=== PATIENT | male | born 1950 | race Caucasian/White ===

== ENCOUNTER 2018-09-22 11:05 | Outpatient (CLI) | payer MEDICARE, BC ==
[~2018-09-22] VITALS: Ht 182.9 cm; Wt 88.6 kg
--- NOTE | ~2018-09-22 | HEMODYNAMI ---
PATIENT:BJ PATTON MEDICAL RECORD: [id number] : 48 LOCATION:[facility] ADMISSION DATE: 09/22/18 Generatedon:09/22/201814:13 Patient name: BJ PATTON Patient #: [id number] SSN: : 1950 Date of study: 09/22/2018 Page: Of Hemodynamic Procedure Report Patient Data Patient Demographics Procedure consent was obtained First Name: BJ Gender: Male Last Name: ABDI : 1950 Patient #: [id number] Age: 67 year(s) Race: Unknown Additional ID: [id number] Contact details Address: [address] [place] [address] State: [place] City: [place] Zip code: [address] Past Medical History Allergies: No known allergies Admission Admission Data Admission Date: 09/22/2018 Admission Time: 11:05 Procedure Procedure Types Cath Procedure Diagnostic Procedure Cardioversion External Procedure Description Procedure Date Procedure Date: 09/22/2018 Procedure Start Time: 14:04 Procedure End Time: 14:13 Procedure Staff Name Function Stanislav Hearn MD Performing Physician Brenda Crooks RT Monitor Christos Gutierres RN Nurse Trevon Butt MD Additional personnel Procedure Data Procedure Complications No complications Procedure Medications Medication Administration Route Dosage Oxygen etCO2 Nasal cannula 2 l/min Refer to Anesthesia Notes for Sedation Medications Hemodynamics Rest Heart Rate: 77 (bpm) Snapshots Pre Cath Intra NCS Post Cath Vital Signs Time Heart Resp SPO2 etCO2 NIBP (mmHg) Rhythm Pain Sedation Rate (ipm) (%) (mmHg) Status Level (bpm) 14:04:17 67 19 100 35.1 163/111(149) A-Flutter 0 (11) 10(A) , No pain 14:08:31 54 17 98 1.4 119/88(100) SB 0 (11) 9(A) , No pain 14:10:46 61 11 96 32.1 116/74(103) SB 0 (11) 9(A) , No pain Medications Time Medication Route Dose Verified Delivered Reason Notes Effective ness by by 14:03:27 Oxygen etCO2 2 Stanislav Sher used for Nasal l/min Dhiraj Gutierres rn licensed practical cannula 14:03:34 Refer to Stanislav Sher Anesthesia Dhiraj Gutierres RN Notes for Sedation Medications Procedure Log Time Note 13:41:46 Time tracking: Regular hours (M-F 7:00 - 5:00) 13:42:18 Plan of Care:Hemodynamics will remain stable., Cardiac rhythm will remain stable., Comfort level will be maintained., Respiratory function will remain adequate., Patient/ family verbilizes understanding of procedure., Procedure tolerated without complication., Recovers from procedure without complications.. 13:45:45 Christos Gutierres RN sent for patient. Start room use. 13:58:30 Patient received from Pre/Post Procedure Room to CCL 3 Alert and oriented. Tansferred to table in Supine position. 13:58:31 Warm blankets applied, and jenny hugger turned on for patient comfort. 13:58:32 Correct patient and procedure confirmed by team. 13:58:33 Signed procedure consent form obtained from patient. 13:58:34 ECG and BP/O2 sat monitors applied to patient. 13:58:35 Full Disclosure recording started 13:59:23 H&P Date Dictated: 09/11/2018 Within 30 days and on chart., H&P Addendum completed by physician on day of procedure. (MUST COMPLETE FOR ALL OUTPATIENTS). 13:59:26 Pre-procedure instructions explained to patient. 13:59:26 Pre-op teaching completed and patient verbalized understanding. 13:59:32 Rhythm: atrial fibrillation 13:59:37 Family in patients room. 13:59:43 Patient NPO since Midnight. 13:59:48 Patient allergic to No known allergies 13:59:52 Is patient on blood thinner?Yes 13:59:55 ACC The patient was administered the following blood thiners within the last 24 hours: Eliquis 14:00:00 Patient diabetic? No. 14:00:04 Previous problem with sedation/anesthesia? No ? 14:00:05 Snore? Yes 14:00:06 Sleep apnea? No 14:00:06 Deviated septum? No 14:00:07 Opens mouth fully? Yes 14:00:08 Sticks out tongue? Yes 14:00:09 Airway obstruction? No ? 14:00:11 Dentures? No ? 14:00:20 Patient pain scale 0/10 ?. 14:00:24 IV patent on arrival in left forearm with 0.9% NaCl at [facility]. 14:00:26 Lab results completed and on chart. 14:00:28 Alarms reviewed by Meme Hernandez. 14:00:44 Trevon Butt MD present and monitoring patient for TIVA. 14:00:46 Quick combo pads placed on patients chest and back. 14:03:03 Vital chart was started 14:03:23 Final Timeout: patient, procedure, and site verified with staff and physician. All members of the team are in agreement. 14:03:27 Oxygen 2 l/min etCO2 Nasal cannula was administered by Christos Gutierres RN; used for procedure; 14:03:27 Physical assessment completed. ASA score P 2 - A patient with mild systemic disease as per Stanislav Hearn MD. 14:03:30 Sedation plan: TIVA Medication:Propofol 14:03:34 Refer to Anesthesia Notes for Sedation Medications was administered by Christos Gutierres RN; ; 14:06:14 Baseline sample Acquired. 14:06:24 Procedure started. 14:06:43 Defibrillator synced and charged to 100 Joules. 14:06:51 Shock delivered. 14:07:22 Patient cardioverted to sinus bradycardia. 14:07:28 Procedure ended.(Physican Out) 14:10:12 Post procedure rhythm: sinus bradycardia 14:10:13 Post procedure instruction explained to patient.Patient verbalizes understanding. 14:10:14 Patient needs reinforcement of post procedure teaching. 14:10:22 Procedure Complication : No complications 14:10:36 Quick Combo opened to sterile field. 14:10:50 See physician's report for complete and final results. 14:11:51 Procedure and supply charges have been captured, reviewed, submitted and are correct. 14:13:15 Vital chart was stopped 14:13:17 Report given to Pre/Post Procedure Room. 14:13:19 Patient transfered to Pre/Post Procedure Room with Stretcher. 14:13:25 Procedure ended. 14:13:25 Full Disclosure recording stopped 14:13:28 End room use (Document Last) Device Usage Item Manufacture Quantity Catalog Hospital Part Current Minimal Lot# / Name Number Charge Number Stock Stock Seri al# Code Bvents 1 [id number] Combo Signature Audit [place] Stage Time Signature Unsigned Intra-Procedure 09/22/2018 Brenda 2:13:37 PM Counts RT(R) Signatures Monitor : Brenda Signature : Counts RT Date : Time : [address] [id number]
[2018-09-22] MEDS ORDERED: LEVOTHYROXINE150 MCG PO (11:51)
[2018-09-22] MEDS ORDERED: ELIQUIS2.5 MG PO (11:51)
[2018-09-22] MEDS ORDERED: PRINIVIL20 MG PO (11:51)
[2018-09-22] MEDS ORDERED: PROTONIX40 MG PO (11:51)
[2018-09-22] MEDS ORDERED: BETAPACE 80 MG80 MG PO (11:51)
[2018-09-22 12:14] VITALS: BP 166/99; Ht 182.9 cm; Wt 88.6 kg
[2018-09-22 12:31] LABS: BASOPHILS 0.2 % (0-2); EOSINOPHILS 3.8 % (0-7); HEMATOCRIT 44.2 % (42.0-54.0); HEMOGLOBIN 15.4 g/dL (13.5-17.5); IMMATURE GRANULOCYTES 0.2 % (0-5); LYMPHOCYTES 28.1 % (15-50); MCH 30.9 pg (26.0-34.0); MCHC 34.8 g/dL (31.0-37.0); MCV 88.8 fL (80.0-100.0); MEAN PLATELET VOLUME 10.6 fL (7.4-10.4); MONOCYTES 9.4 % (2-11); NEUTROPHILS 58.3 % (40-80); PLATELET COUNT 200 10x3/uL (130-400); RBC 4.98 10x6/uL (4.20-6.10); WBC 9.7 10x3/uL (4.8-10.8)
[2018-09-22 12:40] LABS: ANION GAP 12.4 mmol/L (8-16); CALCIUM 9.1 mg/dL (8.5-10.1); CREATININE - SERUM 1.1 mg/dL (0.6-1.3); INR 1.07 (0.85-1.17); POTASSIUM - SERUM 4.4 mmol/L (3.5-5.1); PROTIME 13.5 SECONDS (11.6-15.0)
== END 2018-09-22 15:35 ==
LOC: D.CATH 11:05
PROVIDERS: Internal Medicine Cardiovascular Disease
DX: I48.91 Unspecified atrial fibrillation (principal); Z01.812 Encounter for preprocedural laboratory examination